=== PATIENT | female | born 1960 | race Caucasian/White ===

== ENCOUNTER 2024-12-09 14:59 | Outpatient (CLI) | payer MEDICARE, SELFPAY ==
--- NOTE | 2024-12-09 14:30 | DI.RAD_ITS ---
Exam(s) XR KNEE RT 3V AP,LAT,INGRID EXAM: XR KNEE RT 3V AP,LAT,INGRID CLINICAL HISTORY: right knee pain. TECHNIQUE: 2D digital imaging was performed. Three views. COMPARISON: No exams were available for comparison FINDINGS: BONES: No acute fracture is present. No bony destructive lesion is seen. JOINTS: The joint spaces are maintained. There is mild spurring at the medial femoral tibial joint. The knee is normally aligned. No joint effusion is seen. SOFT TISSUE: Normal. IMPRESSION: Mild degenerative changes. DATA REPOSITORY: RADIATION DOSE DELIVERED:
== END 2024-12-09 15:00 | disposition home or self-care (01) ==
LOC: DIORS 14:59
PROVIDERS: Visit Provider Student in an Organized Health Care Education/Training Program
DX: M25.561 Pain in right knee (principal); S83.241A Other tear of medial meniscus, current injury, right knee, initial encounter; X50.9XXA Other and unspecified overexertion or strenuous movements or postures, initial encounter
CPT/HCPCS: 99203; 73562

== ENCOUNTER 2025-01-01 00:24 | Outpatient (CLI) | payer MEDICARE, SELFPAY ==
--- NOTE | 2025-01-01 06:30 | DI.MRI_ITS ---
Exam(s) MR LOWER JOINT RT WO EXAM: MR LOWER JOINT RT WO CLINICAL HISTORY: R KNEE PAIN,TEAR MEDIAL MENISCUS RT KNEE,[id number]. TECHNIQUE: Multiplanar multisequence MRI was performed. COMPARISON: CR XR KNEE RT 3V AP,LAT,INGRID from 12/09/2024 FINDINGS: BONES: There is no discrete fracture. There is small amount of high signal in the medial femoral condyle. JOINTS: A large joint effusion is present. Articular cartilage: Patellofemoral joint: Articular cartilage is unremarkable. Medial femoral tibial joint: Articular cartilage is unremarkable. Lateral femoral tibial joint: Articular cartilage is unremarkable. LIGAMENTS/TENDONS: Anterior Cruciate: Unremarkable. Posterior Cruciate: Unremarkable. Medial Collateral:Unremarkable. Lateral Collateral ligament complex: Unremarkable. Extensor mechanism: Unremarkable. Medial retinaculum: Unremarkable. Lateral retinaculum: Unremarkable. Popliteus: Unremarkable. MENISCI: Evaluation mildly limited on the sagittal images due to mild motion and pulsation artifact. The medial meniscus is somewhat diminutive which could represent degenerative changes. Some blunting at the apex of the body. There is a inferior surfacing horizontal tear of the body posterior horn. There is a tiny adjacent posterior meniscal cyst. The lateral meniscus is unremarkable. MUSCLES: Unremarkable. 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 Venous varicosities. IMPRESSION: Tear of the posterior horn and body of the medial meniscus superimposed on degenerative changes. Mild contusion versus degenerative signal changes of the medial femoral condyle. DATA REPOSITORY:
== END 2025-01-01 00:44 ==
PROVIDERS: PCP Family Medicine; Visit Provider Student in an Organized Health Care Education/Training Program
DX: S83.241A Other tear of medial meniscus, current injury, right knee, initial encounter (principal); X58.XXXA Exposure to other specified factors, initial encounter
CPT/HCPCS: 73721

== ENCOUNTER → 2025-01-06 08:57 | Outpatient (BNVA) | payer MEDICARE, SELFPAY | PROVIDERS: PCP Family Medicine; Visit Provider Student in an Organized Health Care Education/Training Program | DX: S83.241A Other tear of medial meniscus, current injury, right knee, initial encounter (principal); X58.XXXA Exposure to other specified factors, initial encounter | CPT/HCPCS: 99214 ==